=== PATIENT | male | born 1955 | race Caucasian/White ===

== ENCOUNTER 2016-11-11 21:16 | Observation (INO) ==
[2016-11-11] MEDS ORDERED: ASPIRIN PO STA (21:38)
[2016-11-11 21:55] LABS: BASO% 0.3 % (0.0-0.8); EOS# 0.15 X1000 (0.0-0.7); EOS% 0.7 % (0.0-10.0); HEMATOCRIT 44.8 % (42.0-52.0); HEMOGLOBIN 15.8 g/dL (14.0-18.0); IMM GRAN# 0.14 X1000 (0.0-0.04); IMM GRAN% 0.7 % (0.0-0.5); LYMPH# 6.37 X1000 (1.2-3.4); LYMPH% 30.2 % (20.5-51.1); MANUAL DIFF NEEDED? NO; MCH 34.6 PG (27-31); MCHC 35.3 g/dL (33-37); MONO# 2.38 X1000 (0.11-0.59); MONO% 11.3 % (1.7-9.3); MPV 11.5 FL (7.4-10.4); NEUT% 56.8 % (42.2-75.2); PLT 240 X1000 (130-400); RBC 4.57 XMIL (4.7-6.1)
[2016-11-11 22:02] LABS: INR 1.01; PROTIME 10.6 Seconds (9.2-11.7); PTT 28.3 Seconds (22.0-36.0)
[2016-11-11 22:11] LABS: CALCIUM 9.3 mg/dL (8.8-10.2); MAGNESIUM 1.6 mg/dL (1.5-2.7); POTASSIUM 4.3 mmol/L (3.5-5.1); TOTAL BILIRUBIN 0.42 mg/dL (0.20-1.00); TOTAL PROTEIN 8.1 g/dL (6.3-8.3)
[2016-11-11] MEDS ORDERED: NS 1,000 ML IV ONE (22:11)
[2016-11-11 22:54] LABS: URINE CULTURE NEEDED? NO; URINE SOURCE CLEAN CATCH
[2016-11-11] MEDS ORDERED: NICODERM PATCH TD ONE (23:04)
[2016-11-11 23:06] LABS: BILIRUBIN URINE NEGATIVE (NEGATIVE); BLOOD URINE NEGATIVE (NEGATIVE); COLOR YELLOW; GLUCOSE URINE >1000 mg/dL (NEGATIVE); LEUKOCYTES URINE NEGATIVE (NEGATIVE); NITRITE URINE NEGATIVE (NEGATIVE); PH URINE 5.5; PROTEIN URINE 100 mg/dL (NEGATIVE); SP GRAVITY URINE 1.023; TURBIDITY URINE CLEAR (CLEAR); UROBILINOGEN URINE NORMAL (NORMAL)
[2016-11-11 23:07] LABS: URINE MICRO REVIEW NEEDED? YES
[2016-11-11 23:14] LABS: UR EPITHELIAL CELLS <10 /HPF (<10); URINE BACTERIA NEGATIVE /HPF; URINE RBC <10 /HPF (<10); URINE WBC <10 /HPF (<10)
[2016-11-11 23:19] LABS: URINE CASTS GRANULAR PRESENT; URINE CRYSTALS NONE SEEN; URINE SMALL ROUND CELLS NONE SEEN
[2016-11-11] MEDS ORDERED: NEURONTIN PO ONE (23:27)
[2016-11-11] MEDS ORDERED: NORCO-10 PO ONE (23:27)
--- NOTE | 2016-11-12 00:26 | ED EKG INTERP ---
This chart was entered by Radha Kilpatrick Scribe, acting as scribe for Román Kevin MD. EKG Interpretation - EKG Time of EKG reading by physician:: 21:28 EKG Read and Signed by:: Román Kevin EKG Interpretation (*Must complete 3 of following elements*): Normal Rate: 107 Rhythm: Sinus Tachycardia Comments: Otherwise Normal ECG This chart was documented by the indicated scribe, (Radha Kilpatrick Scribe) and accurately reflects the services I performed and decisions made by me, Román Kevin MD, as attested by the provider's signature.
--- NOTE | 2016-11-12 00:53 | PROVIDER DOCUMENTATION ---
This chart was entered by Radha Kilpatrick Scribe, acting as scribe for Román Kevin MD. HPI-Syncope/Dizziness - General Chief Complaint: Weakness Stated Complaint: DIZZY/CHEST PAIN Time Seen by Provider: 11/11/16 21:58 Source: patient Allergies/Adverse Reactions: Patient Allergies Allergy/AdvReac Type Severity Reaction Status Date / Time diphenhydramine HCl * AdvReac Unknown Verified 09/08/16 16:30 [From [facility]] Home Medications: Home Medication List Medication Instructions Recorded Confirmed Last Taken Type Dulaglutide [Trulicity] 1 dose PO DAILY 12/04/15 11/11/16 11/08/16 History Gabapentin 900 mg PO TID 12/04/15 11/11/16 11/11/16 History Hydrocodone/Acetaminophen [Nezperce 1 tab PO TID 12/04/15 11/11/16 09/08/16 History 10-325 Tablet] Insulin Glargine [Lantus] 100 units SQ BID 12/04/15 11/11/16 11/11/16 History Risperidone [Risperdal] 1 mg PO TID 12/04/15 11/12/16 09/08/16 History Tramadol [Ultram] 50 mg PO Q6H PRN PRN #12 tablet 12/22/15 11/11/16 09/08/16 Rx Aspirin 81 mg PO DAILY 08/30/16 11/11/16 09/08/16 History Insulin Aspart [Novolog] 20 unit SQ BID AC 08/30/16 11/11/16 11/11/16 History Lisinopril/Hydrochlorothiazide 1 each PO QAM #90 tablet 08/30/16 11/11/16 Rx [Lisinopril-Hctz 10-12.5 mg Tab] Nitroglycerin Sl [Nitroglycerin] 0.4 mg SL PRN PRN #10 tablet 08/30/16 11/11/16 09/08/16 Rx Chlordiazepoxide [Librium] 100 mg PO Q6H PRN PRN 11/11/16 11/11/16 Unknown History - History of Present Illness-Syncope/Dizzy Nature of Presenting Problem: 61 Y/O M presents to ED with General Adult. Pt states that he's been fatigued, with near syncope today. 1/2hr of anterior neck pain. intermittent Chest Pain and chronic SOB. Pt states he has increased coughing over the past week. Review of Systems - Adult - REVIEW OF SYSTEMS - ADULT Constitutional: reports: fatique. denies: chills, fever Eyes: reports: no symptoms reported Ears, Nose, Mouth & Throat: reports: no symptoms reported Cardiovascular: reports: chest pain, syncope Respiratory: reports: cough, shortness of breath Gastrointestinal: denies: abdominal pain, diarrhea, nausea, vomiting Genitourinary: reports: no symptoms reported Musculoskeletal: reports: neck pain Integumentary: reports: no symptoms reported Neurological: reports: no symptoms reported Psychiatric: reports: no symptoms reported Endocrine: reports: no symptoms reported Hematologic/Lymphatic: reports: no symptoms reported Allergic/Immunologic: reports: no symptoms reported All Other Systems: Reviewed and Negative Past History - Adult - PAST MEDICAL HISTORY-ADULT Review of Records: reports: Old Records Reviewed, Nursing Assessment Review, Medications Reviewed, Social history reviewed & non-contributory. Major Childhood Illnesses: reports: denies history Cardiovascular: reports: HTN, hyperlipidemia Respiratory: reports: COPD Gastrointestinal: reports: GERD Obstetrical/Gynecological: reports: denies history Genitourinary: reports: denies history Musculoskeletal: reports: chronic pain, other (neuroapathy) Neurological: reports: denies history Psychiatric: reports: bipolar, depression Endocrine/Immune: reports: Diabetes Other Conditions: reports: denies history - PRIOR SURGERIES/PROCEDURES Surgical/Procedure History: reports: reviewed, not pertinent - IMMUNIZATION STATUS Childhood Immunizations: See Nurse Assessment Flu Vaccine: See Nurse Assessment - FAMILY HISTORY Family History: reviewed, not pertinent Physical Exam-General - CONSTITUTIONAL General Appearance: alert, no apparent distress - EYES Eyes: PERRL/EOMI, pink conjunctivae - HEAD, EARS, NOSE, MOUTH & THROAT HENMT: moist mucous membranes, normal ENT inspection, TMs normal, pharynx normal - NECK Neck: non-tender, full range of motion, supple, normal inspection - RESPIRATORY Respiratory: wheezing (mild expiratory) - CARDIOVASCULAR Cardiovascular: regular rate, rhythm - GASTROINTESTINAL (ABDOMEN) Abdominal Exam: non tender, soft - LYMPHATIC Lymphatic: no adenopathy - MUSCULOSKELETAL Back Exam: normal inspection Extremity: normal range of motion - SKIN Integumentary: normal color, normal turgor - NEUROLOGIC Neurologic: grossly normal - PSYCHIATRIC Psych/Mental Status: normal mood/affect, normal thought content, normal thought process, oriented x 3 Progress - PLAN OF CARE/RESULTS Progress/Plan/Lab Results: Vital Signs - 8 hr 11/11/16 21:31 Pulse Rate 114 H Respiratory Rate 18 Blood Pressure 97/67 O2 Sat by Pulse Oximetry 97 Laboratory Results - last 24 hr 11/11/16 11/11/16 11/11/16 21:36 21:40 21:40 WBC 21.11 H RBC 4.57 L Hgb 15.8 Hct 44.8 MCV 98.0 MCH 34.6 H MCHC 35.3 RDW Std Deviation 11.9 Plt Count 240 MPV 11.5 H Immature Gran % (Auto) 0.7 H Neut % (Auto) 56.8 Lymph % (Auto) 30.2 [place] % (Auto) 11.3 H Eos % (Auto) 0.7 Baso % (Auto) 0.3 Immature Gran # (Auto) 0.14 H Neut # (Auto) 12.00 H Lymph # (Auto) 6.37 H [place] # (Auto) 2.38 H Eos # (Auto) 0.15 Baso # (Auto) 0.07 PT INR PTT (Actin FS) D-Dimer Sodium 138 Potassium 4.3 Chloride 100 Carbon Dioxide 22 L Anion Gap 16 BUN 25 H Creatinine 1.7 H Estimated GFR/1.73 m2 41 BUN/Creatinine Ratio 15 Glucose 157 H POC Glucose 145 H Calculated Osmolality 283 Calcium 9.3 Magnesium 1.6 Total Bilirubin 0.42 AST 18 ALT 22 Alkaline Phosphatase 74 Creatine Kinase 70 Troponin T Rxw-U-Oaotjdxkhua Pept Total Protein 8.1 Albumin 4.0 Globulin 4.1 Albumin/Globulin Ratio 1.0 Plasma Lactate Urine Source Urine Color Urine Turbidity Urine pH Ur Specific [place] Urine Protein Ur Glucose (Stick) Ur Ketones (Stick) Urine Blood Urine Nitrite Urine Bilirubin Urobilinogen Dipstick Urine Leukocytes Urine WBC (Auto) Urine RBC (Auto) U Epithel Cells (Auto) Urine Bacteria (Auto) Urine Crystals Small Round Cells Urine Casts Urine Yeast-like Cells 11/11/16 11/11/16 11/11/16 21:40 21:40 21:40 WBC RBC Hgb Hct MCV MCH MCHC RDW Std Deviation Plt Count MPV Immature Gran % (Auto) Neut % (Auto) Lymph % (Auto) [place] % (Auto) Eos % (Auto) Baso % (Auto) Immature Gran # (Auto) Neut # (Auto) Lymph # (Auto) [place] # (Auto) Eos # (Auto) Baso # (Auto) PT 10.6 INR 1.01 PTT (Actin FS) 28.3 D-Dimer 0.27 Sodium Potassium Chloride Carbon Dioxide Anion Gap BUN Creatinine Estimated GFR/1.73 m2 BUN/Creatinine Ratio Glucose POC Glucose Calculated Osmolality Calcium Magnesium Total Bilirubin AST ALT Alkaline Phosphatase Creatine Kinase Troponin T Glm-D-Fyxcnolzinq Pept 26 Total Protein Albumin Globulin Albumin/Globulin Ratio Plasma Lactate Urine Source Urine Color Urine Turbidity Urine pH Ur Specific [place] Urine Protein Ur Glucose (Stick) Ur Ketones (Stick) Urine Blood Urine Nitrite Urine Bilirubin Urobilinogen Dipstick Urine Leukocytes Urine WBC (Auto) Urine RBC (Auto) U Epithel Cells (Auto) Urine Bacteria (Auto) Urine Crystals Small Round Cells Urine Casts Urine Yeast-like Cells 11/11/16 11/11/16 11/11/16 21:40 22:35 22:45 WBC RBC Hgb Hct MCV MCH MCHC RDW Std Deviation Plt Count MPV Immature Gran % (Auto) Neut % (Auto) Lymph % (Auto) [place] % (Auto) Eos % (Auto) Baso % (Auto) Immature Gran # (Auto) Neut # (Auto) Lymph # (Auto) [place] # (Auto) Eos # (Auto) Baso # (Auto) PT INR PTT (Actin FS) D-Dimer Sodium Potassium Chloride Carbon Dioxide Anion Gap BUN Creatinine Estimated GFR/1.73 m2 BUN/Creatinine Ratio Glucose POC Glucose Calculated Osmolality Calcium Magnesium Total Bilirubin AST ALT Alkaline Phosphatase Creatine Kinase Troponin T < 0.010 Lan-O-Woxurhmjxbu Pept Total Protein Albumin Globulin Albumin/Globulin Ratio Plasma Lactate < 0.2 L Urine Source CLEAN CATCH Urine Color YELLOW Urine Turbidity CLEAR Urine pH 5.5 Ur Specific [place] 1.023 Urine Protein 100 A Ur Glucose (Stick) >1000 A Ur Ketones (Stick) NEGATIVE Urine Blood NEGATIVE Urine Nitrite NEGATIVE Urine Bilirubin NEGATIVE Urobilinogen Dipstick NORMAL Urine Leukocytes NEGATIVE Urine WBC (Auto) <10 Urine RBC (Auto) <10 U Epithel Cells (Auto) <10 Urine Bacteria (Auto) NEGATIVE Urine Crystals NONE SEEN Small Round Cells NONE SEEN Urine Casts GRANULAR PRESENT Urine Yeast-like Cells NONE SEEN 11/12/16 11/12/16 00:00 00:00 WBC RBC Hgb Hct MCV MCH MCHC RDW Std Deviation Plt Count MPV Immature Gran % (Auto) Neut % (Auto) Lymph % (Auto) [place] % (Auto) Eos % (Auto) Baso % (Auto) Immature Gran # (Auto) Neut # (Auto) Lymph # (Auto) [place] # (Auto) Eos # (Auto) Baso # (Auto) PT INR PTT (Actin FS) D-Dimer Sodium Potassium Chloride Carbon Dioxide Anion Gap BUN Creatinine Estimated GFR/1.73 m2 BUN/Creatinine Ratio Glucose POC Glucose Calculated Osmolality Calcium Magnesium Total Bilirubin AST ALT Alkaline Phosphatase Creatine Kinase 66 Troponin T < 0.010 Dxz-R-Ympugygyasl Pept Total Protein Albumin Globulin Albumin/Globulin Ratio Plasma Lactate Urine Source Urine Color Urine Turbidity Urine pH Ur Specific [place] Urine Protein Ur Glucose (Stick) Ur Ketones (Stick) Urine Blood Urine Nitrite Urine Bilirubin Urobilinogen Dipstick Urine Leukocytes Urine WBC (Auto) Urine RBC (Auto) U Epithel Cells (Auto) Urine Bacteria (Auto) Urine Crystals Small Round Cells Urine Casts Urine Yeast-like Cells Orders Category Date Time Status Cardiac Monitoring DIRECTED Care 11/11/16 21:39 Active Saline Loc NOW Care 11/11/16 21:39 Active CHEST-2 VIEWS [RAD] Stat Exams 11/11/16 21:39 Taken BLOOD CULTURE [BLDCUL] Stat Lab 11/11/16 22:30 Results CBC WITH ELECTRONIC DIFF [HEME] Stat Lab 11/11/16 21:40 Completed CK PROFILE [SP CHEM] Stat Lab 11/11/16 21:40 Completed CK PROFILE [SP CHEM] Stat Lab 11/12/16 00:00 Completed COMPREHENSIVE METABOLIC PANEL [CHEM] Stat Lab 11/11/16 21:40 Completed D-DIMER [CHEM] Stat Lab 11/11/16 21:40 Completed LACTATE, PLASMA [CHEM] Stat Lab 11/11/16 22:35 Completed MAGNESIUM [CHEM] Stat Lab 11/11/16 21:40 Completed PRO B-NATRIURETIC PEPTIDE Stat Lab 11/11/16 21:40 Completed PROTIME WITH INR [COAG] Stat Lab 11/11/16 21:40 Completed PTT [COAG] Stat Lab 11/11/16 21:40 Completed TROPONIN T Stat Lab 11/11/16 21:40 Completed TROPONIN T Stat Lab 11/12/16 00:00 Completed UA Reflex [URINALYSIS W/POSS RFLX CULT] [URINALYSIS] Lab 11/11/16 22:45 Completed Stat URINE MANUAL MICROSCOPIC [URINALYSIS] Stat Lab 11/11/16 22:45 Completed 0.9% Sodium Chloride Inj [Ns] 1,000 ml Med 11/11/16 22:11 Discontinued IV 999 mls/hr Aspirin Med 11/11/16 21:38 Discontinued 325 mg PO STAT STA Gabapentin [Neurontin] Med 11/11/16 23:27 Discontinued 900 mg PO NOW ONE Hydrocodone/APAP 10 mg/325 mg [Nezperce-10] Med 11/11/16 23:27 Discontinued 1 each PO NOW ONE Nicotine Patch [Nicoderm Patch] Med 11/11/16 23:04 Discontinued 21 mg TD NOW ONE EKG [EKG] Stat Ther 11/11/16 21:25 Ordered EKG [EKG] Stat Ther 11/11/16 23:28 Ordered Result Diagrams: 11/11/16 21:40 11/11/16 21:40 - XRAY 1 XRAY Study: Chest Impression: Normal XRAY Interpretation: NAD Departure - Departure Date of Disposition Decision: 11/12/16 Time of Disposition Decision: 00:51 DIAGNOSIS: Near syncope Disposition: ADMITTED INPATIENT 09 Certified Medical Emergency: Emergent Condition: Good Referrals and Follow-Ups: Juan Ramon Serrato MD [Primary Care Provider] - - Critical Care Note This patient required my direct & personal management of CC.: No This chart was documented by the indicated scribe, (Radha Kilpatrick Scribe) and accurately reflects the services I performed and decisions made by me, Román Kevin MD, as attested by the provider's signature.
[2016-11-12] MEDS ORDERED: NS 1,000 ML IV ONE (03:04)
[2016-11-12] MEDS ORDERED: NITROGLYCERIN SL PRN (03:04)
[2016-11-12] MEDS ORDERED: TYLENOL PO PRN (03:04)
[2016-11-12] MEDS ORDERED: ZOFRAN IV PRN (03:04)
[2016-11-12 04:14] LABS: HEMOGLOBIN A1C 9.8 % (4.8-6.0)
--- NOTE | 2016-11-12 05:27 | EKG Report ---
Test Performed on : 11/11/2016 9:28:44 PM Test Reason : CP Blood Pressure : / mmHG Vent. Rate : 107 BPM Atrial Rate : 107 BPM P-R Int : 154 ms QRS Dur : 080 ms QT Int : 318 ms P-R-T Axes : 043 021 026 degrees QTc Int : 424 ms Sinus tachycardia. Otherwise normal ECG When compared with ECG of 08-SEP-2016 16:12, No significant change was found Unconfirmed Result
--- NOTE | 2016-11-12 05:35 | HISTORY AND PHYSICAL ---
CHIEF COMPLAINT: Chest pain, dizziness. HISTORY OF PRESENT ILLNESS: This is a 61-year-old gentleman with history of hypertension, diabetes, tobacco abuse, who presents with dizziness and chest pain. Patient has had several episodes today where he felt so dizzy he was going to pass out. He did not have any actual passing out episode but he did have issues with chest pain as well which is what prompted him to come in for evaluation. The pain is left-sided, precordial, sharp in nature, nonradiating, relieved with minimal exertion and rest. He came in the ER for evaluation. He reports having a stress test about 3-4 years ago and was negative at that time. Workup in the ER was unremarkable and he was placed in observation for chest pain and dizziness. Patient is normotensive to low blood pressure. He is usually on lisinopril/hydrochlorothiazide. PAST MEDICAL HISTORY: 1. Hypertension. 2. Diabetes. 3. Chronic pain. 4. Denies any cardiac history. PAST SURGICAL HISTORY: Denies. FAMILY HISTORY: Positive for diabetes in mother. Father had CAD and CVA in his 70s. SOCIAL HISTORY: Smokes a pack a day. He has done that for 42 years so at least a 40 pack year history. Denies drugs or ethanol. REVIEW OF SYSTEMS: Otherwise negative x10 point review of systems. ALLERGIES: Benadryl. MEDICATIONS: He is on aspirin 81 daily, Librium 100 q.6, Trulicity daily, gabapentin 900 t.i.d., [place] t.i.d., NovoLog 20 b.i.d., Lantus 100 b.i.d., lisinopril/hydrochlorothiazide which was started in August 24.5 daily, nitroglycerin p.r.n., Risperdal 1 t.i.d., tramadol. PHYSICAL EXAMINATION: VITAL SIGNS: Blood pressure 112/71, heart rate of 83, respiratory rate of 22, afebrile, 98% on room air. GENERAL: A well-developed male in no acute distress. HEAD: Normocephalic, atraumatic. EYES: Pupils equal, round, reactive to light. Extraocular movements were intact. His conjunctiva were injected. EAR/NOSE/THROAT: Moist mucous membranes. NECK: Supple. CARDIOVASCULAR: Regular rate and rhythm. PULMONARY: Bilateral breath sounds. Clear to auscultation. GASTROINTESTINAL: Soft, nontender, nondistended. Bowel sounds are positive. EXTREMITIES: No clubbing or cyanosis. LYMPHATICS: No peripheral edema. NEUROLOGICAL: Nonfocal. LABORATORY DATA: Was remarkable for profound leukocytosis, white count of 21,000. Chemistry is BUN and creatinine 25 and 1.7. Two troponins negative. EKG was unremarkable. Chest x-ray was clear. UA was negative. ASSESSMENT: This is a 61-year-old male with history of hypertension, diabetes, presenting with atypical chest pain. He has a chronic cough. 1. Chest pain. We will rule out with serial cardiac enzymes and follow clinically. Pursue Lexiscan and echo tomorrow. He does have several risk factors. ADINA score is above 3. 2. Leukocytosis. There is no obvious source of infection. We will monitor, continue IV fluids and follow closely. 3. Diabetes. Continue to monitor blood sugars. Check an A1c. Continue sliding scale and follow closely. 4. Dizziness, may be just related to some dehydration. We will stop lisinopril/hydrochlorothiazide. Continue hydration and follow. cc: MD Pablito Askew MD
--- NOTE | 2016-11-12 07:35 | Diag Imaging Result Doc PS360 ---
CHEST-2 VIEWS - 11/11/2016 INDICATION: CP TECHNIQUE: COMPARISON: None FINDINGS: The lungs are normally expanded and clear. Heart size and mediastinal contours are normal. No pneumothorax or pleural effusion. There are stable old rib deformities of posterior left-sided ribs. IMPRESSION: Negative exam. Electronically signed by Thomas Montes De Oca 11/12/2016 7:33 AM
[2016-11-12] MEDS: HUMULIN R SUBQ SCH ×4 (07:50→20:42)
[2016-11-12] MEDS ORDERED: LEXISCAN ONE (09:39)
[2016-11-12] MEDS: NORCO-10 PO PRN ×3 (12:40→22:06)
[2016-11-12] MEDS: HUMALOG SUBQ SCH ×2 (12:46→16:17)
[2016-11-12] MEDS: RISPERDAL PO SCH ×2 (12:47→17:28)
[2016-11-12] MEDS: NEURONTIN PO SCH ×3 (12:47→20:41)
[2016-11-12] MEDS: ASPIRIN PO SCH (13:00)
[2016-11-12] MEDS ORDERED: PNEUMOVAX 23 IM ONE (15:00)
--- NOTE | 2016-11-12 15:12 | Diag Imaging Result Document ---
PROCEDURE NAME: MYOCARDIAL PERF SCAN, STR/REST - 11/12/2016 PROCEDURE: Lexiscan sestamibi interpretation. DATE OF STUDY: 11/12/2016. SUMMARY: The patient was administered 14.9 millicuries of technetium-99m sestamibi, after which resting cardiac images were obtained. The patient was subsequently stressed using Lexiscan protocol. Following the administration of Lexiscan, the heart rate increased from 81 beats per minute to 105 beats per minute while the blood pressure went from 124/74 to 124/84. With Lexiscan, the patient denied chest discomfort. Following the administration of Lexiscan, the patient was administered 45.8 millicuries of technetium-99m sestamibi, after which gated stress cardiac images were obtained. Baseline ECG demonstrates sinus rhythm and was within normal limits. With Lexiscan, there were no diagnostic ST-segment changes. SPECT images were reconstructed in the short, horizontal, and vertical long axis. Review of these images demonstrated no scintigraphic evidence of inducible myocardial ischemia or infarct. Gated images demonstrated a calculated left ventricular ejection fraction of 74% with symmetrical wall motion/thickening. CONCLUSIONS: 1. Adequate response to Lexiscan. 2. Clinically negative for chest pain. 3. Electrocardiographically negative for Lexiscan-induced myocardial ischemia. 4. Lexiscan sestamibi images demonstrate no scintigraphic evidence of inducible myocardial ischemia. Normal left ventricular systolic function demonstrated. cc: MD Jose De Jesus Soto MD
[2016-11-12] MEDS: ULTRAM PO PRN ×2 (15:14→20:41)
--- NOTE | 2016-11-12 15:34 | ECHO REPORT ---
ORDER DATE: 11/12/2016 MEASUREMENTS: 1. Left ventricular end-diastolic diameter 4.4. 2. End systolic diameter 2.8. 3. Posterior wall thickness 1.5. 4. Septal thickness 1.4. 5. Left atrium 4.1. 6. Aortic root 3.2. SUMMARY OF 2-DIMENSIONAL IMAGIN. Fair quality study. 2. Aortic valve is trileaflet and opens normally on 2-dimensional images. Mitral, tricuspid, and pulmonic valves are without structural abnormality with trace mitral regurgitation and trace tricuspid regurgitation. The aortic root is normal in size. 3. Normal left ventricular chamber size with mild concentric left hypertrophy is suggested on 2-D images. Estimated left ventricular ejection fraction appears to be greater than 65%. No regional wall motion abnormalities are evident. Left atrium is borderline enlarged. Right atrium and right ventricle normal in size with normal right ventricular systolic function. 4. No pericardial effusion. 5. Appearance of inferior vena cava suggests normal central venous pressure. CONCLUSIONS: 1. No significant valvular abnormality. 2. Mild concentric left ventricular hypertrophy with estimated ejection fraction at least 65%. 3. Borderline left atrial enlargement. cc: MD Jose De Jesus Soto MD Jagan Reddy, MD
[2016-11-12] MEDS ORDERED: VANCOMYCIN IV PER PHARMACY MISC SCH (19:45)
[2016-11-12] MEDS ORDERED: VANCOMYCIN 2 GM in NS 500 ML IV ONE (21:00)
[2016-11-12] MEDS ORDERED: NICODERM PATCH TD ONE (22:30)
--- NOTE | 2016-11-13 05:36 | PROGRESS NOTE ---
DATE: 11/12/2016 SUBJECTIVE: Patient was admitted yesterday by Dr. Trejo for chest pain, dizziness. He was not seen in my office since March 2016. REVIEW OF SYSTEMS: Dizziness. Low-grade fever. HEENT: No headache. No vision problem. No earache. No sore throat. Cardiopulmonary: Atypical chest pain with dizziness. No shortness of breath, PND, orthopnea. GI: No nausea, vomiting, abdominal pain. : No history of hesitancy, frequency. No swelling of legs. Neurologic: No obvious focal symptoms or seizures. PAST MEDICAL HISTORY: Bipolar disorder, diabetes with peripheral neuropathy, hypertension, tobacco abuse. PAST SURGICAL HISTORY: None. MEDICATIONS: Reviewed. PHYSICAL EXAMINATION: Vital Signs: He is afebrile. Vital signs are stable, 5 feet 10, weight 110 pounds. HEENT: Exam within normal limits. Neck: Supple. Chest: Clear. Heart: Sounds are regular. Abdomen: Belly is soft, nontender. Good bowel sounds. No masses palpable. No peripheral edema or cyanosis. No clubbing. Neurologic: Nonfocal. INVESTIGATIONS: CBC: White cell count 21,000, hematocrit 44, platelets 240,000. SMA 7 BUN 25, creatinine 1.7, glucose 253. A1c 9.8. Urinalysis is clear. EKG: Sinus tachycardia. Nothing acute for ischemia. Chest x-ray: Negative. ASSESSMENT AND PLAN: 1. Pain with dizziness. Followup on echocardiography report, as well as, a scheduled myocardial perfusion scan. 2. Elevated white cell count. Low-grade fever. Follow up on blood cultures, urine cultures. 3. Uncontrolled diabetes. Currently taking Lantus and Humalog and Trulicity in my office. 4. Peripheral neuropathy. On gabapentin. 5. Hypertension. On metoprolol. 6. B12 deficiency. On replacement therapy. 7. History of noncompliance. 8. Tobacco abuse. Quit smoking. 9. Chronic back pain. Using [place] by Dr. Nails. 10. Chronic anxiety. On Xanax. LEVEL OF CARE: Thirty-five minutes. cc: Pablito Serrato MD
[2016-11-13] MEDS: HUMALOG SUBQ SCH (06:44)
[2016-11-13] MEDS: HUMULIN R SUBQ SCH (06:44)
[2016-11-13] MEDS: ULTRAM PO PRN (06:45)
--- NOTE | 2016-11-13 07:29 | Carotid Study ---
DATE: 11/12/2016 PROCEDURE: Bilateral duplex and color flow imaging of the carotid arteries was performed using a Portable [employer] V[employer] E9 ultrasound system and a 9L-D transducer. REFERRING PHYSICIAN: Dr. Trejo INTERPRETING PHYSICIAN: [place]: Maty INDICATIONS: Vertigo OBSERVED DATA RIGHT LEFT Brachial Blood Pressure Carotid Pulse Bruits: Carotid/Sub DIAGRAM OF ULTRASOUND IMAGING R L RIGHT INT EXT INT EXT LEFT Yang (cm/s) Yang (cm/s) Subclavian 86/0 Subclavian 90/0 CCA Proximal 103/22 CCA Proximal 98/19 CCA Distal 59/13 CCA Distal 72/11 Bulb 54/15 Bulb 53/8 ICA Proximal 37/11 ICA Proximal 45/10 ICA Mid 52/20 ICA Mid 68/27 ICA Distal 51/22 ICA Distal 66/30 ECA 83/19 ECA 96/18 Vertebral 38/8, antegrade flow Vertebral 48/19, antegrade flow ICA/CCA Ratio 0.51 ICA/CCA Ratio 0.69 % Stenosis 0-39% % Stenosis 0-39% FINDINGS: Minimal atherosclerosis of bilateral carotid arteries. Both vertebral arteries are antegrade flow. PHYSICIAN INTERPRETATION: Normal bilateral carotid ultrasound study with no hemodynamically significant flow-limiting stenosis noted by strict velocity criteria of bilateral carotid arteries. cc: MD Jose De Jesus Dozier MD Jagan Reddy, MD
[2016-11-13 07:33] LABS: HEMATOCRIT 43.4 % (42.0-52.0); HEMOGLOBIN 14.9 g/dL (14.0-18.0); MCH 34.2 PG (27-31); MCHC 34.3 g/dL (33-37); MCV 99.5 FL (81-99); MPV 11.5 FL (7.4-10.4); RBC 4.36 XMIL (4.7-6.1)
[2016-11-13 07:48] VITALS: BP 155/93
[2016-11-13 07:59] LABS: AGAP 10; BUN 22 mg/dL (8-22); CALCIUM 9.7 mg/dL (8.8-10.2); CHLORIDE 99 mmol/L (98-107); COSMO 282; HDL 30 mg/dL (35-55); LDL 99 mg/dL; POTASSIUM 4.8 mmol/L (3.5-5.1); SODIUM 136 mmol/L (136-145); TCO2 27 mmol/L (25-35); TRIGLYCERIDES 247 mg/dL (39-160); VLDL 49 mg/dL
[2016-11-13 08:10] LABS: FREE T4 1.24 ng/dL (0.93-1.70)
[2016-11-13] MEDS: ASPIRIN PO SCH (10:06)
[2016-11-13] MEDS: NEURONTIN PO SCH (10:06)
[2016-11-13] MEDS: RISPERDAL PO SCH (10:07)
[2016-11-13] MEDS: NORCO-10 PO PRN (10:09)
[2016-11-13] MEDS ORDERED: VANCOMYCIN 1.75 GM in NS 250 ML IV SCH (21:00)
--- NOTE | 2016-11-15 06:17 | DISCHARGE SUMMARY ---
ADMISSION DATE: 11/11/2016 DISCHARGE DATE: 11/13/2016 DISCHARGING DIAGNOSIS: Atypical chest pain. Cardiac perfusion scan is negative. SECONDARY DIAGNOSES: 1. Bipolar disorder. 2. Peripheral neuropathy due to diabetes. 3. Hypertension. 4. Chronic tobacco abuse. 5. Chronic pain, with pain specialist. BRIEF HISTORY AND HOSPITAL COURSE: Please see the H and P that was done by Dr. Brandon Trejo, hospitalist. In brief, he is a 61-year-old, white gentleman with the above problems who was admitted to the hospital with dizziness and chest pain. He does have risk factors. He is noncompliant. He was not seen in my office since March 2016. He was ruled out for [place] by serial cardiac enzymes and myocardial perfusion scan is negative. LABS DURING THIS ADMISSION: CBC: White cell count 13, hematocrit 43, platelets 206,000. SMA 7: Sodium 136, potassium 4.8, chloride 99, BUN 22, creatinine 0.9, glucose 208, and A1c 9.8. Serial cardiac enzymes are normal. ProBNP is 26. Cholesterol 247, LDL 178, HDL 30. Urinalysis is clear. Blood cultures 1 out of 2 positive for coagulase-negative staphylococcus which is most likely a contaminant. RADIOLOGY PROCEDURES: Chest x-ray on 11/11/2016, negative exam. CARDIOLOGY PROCEDURES: 1. Echocardiography: No significant valvular abnormality, mild concentric LVH with EF of 65%, borderline left atrial enlargement. 2. Myocardial perfusion scan clinically negative. EKG is negative, no inducible myocardial ischemia. DISCHARGE INSTRUCTIONS: B12 injections as needed, gabapentin 900 t.i.d., Trulicity 0.75 mg once a week, Risperdal 1 mg t.i.d., [place] as per the pain specialist, tramadol 50 q.6, NovoLog insulin as directed, aspirin 81 mg daily, lisinopril/hydrochlorothiazide 10/12.5 daily, insulin Lantus 50 units subcutaneous b.i.d., Lipitor 20 mg daily. Follow up in the office in 10 days. Needs maintenance care for hyperlipidemia and diabetes every 4 months A1c below 7, LDL less than 100, and quit smoking. Discussed the plan of care with the patient. cc: Pablito Serrato MD
== END 2016-11-13 10:50 | disposition home or self-care (01) ==
LOC: ED 21:16 → EDIPHOLD 21:16 → SUATTDRO 11-12 03:30 → 3N 11-12 13:07
PROVIDERS: ADMIT Internal Medicine; ATTEND Internal Medicine

== ENCOUNTER 2016-12-09 15:17 | Inpatient (IN) ==
[2016-12-09] MEDS ORDERED: NS 1,000 ML IV ONE ×3 (16:06→19:34)
--- NOTE | 2016-12-09 16:28 | Diag Imaging Result Doc PS360 ---
CHEST-2 VIEWS - 12/09/2016 INDICATION: dizziness, hypotension TECHNIQUE: COMPARISON: 11/11/2016 FINDINGS: Stable left-sided rib deformities. The lungs are normally expanded and clear. Heart size and mediastinal contours are normal. No pneumothorax or pleural effusion. IMPRESSION: Negative exam. Electronically signed by Thomas Montes De Oca 12/09/2016 4:26 PM
[2016-12-09] MEDS ORDERED: ANTIVERT PO ONE (17:07)
[2016-12-09 17:36] LABS: BASO% 1.1 % (0.0-0.8); EOS# 0.19 X1000 (0.0-0.7); EOS% 1.1 % (0.0-10.0); HEMATOCRIT 44.1 % (42.0-52.0); HEMOGLOBIN 15.4 g/dL (14.0-18.0); IMM GRAN# 0.12 X1000 (0.0-0.04); IMM GRAN% 0.7 % (0.0-0.5); LYMPH# 5.24 X1000 (1.2-3.4); LYMPH% 30.7 % (20.5-51.1); MANUAL DIFF NEEDED? NO; MCH 34.5 PG (27-31); MCHC 34.9 g/dL (33-37); MCV 98.7 FL (81-99); MONO% 9.4 % (1.7-9.3); MPV 11.5 FL (7.4-10.4); PLT 224 X1000 (130-400); RBC 4.47 XMIL (4.7-6.1)
--- NOTE | 2016-12-09 17:54 | Diag Imaging Result Doc PS360 ---
HEAD W/O CONTRAST - 12/09/2016 INDICATION: dizziness; near syncope TECHNIQUE: A CT dose reduction protocol was used. COMPARISON: None FINDINGS: The ventricles and sulci are normal in size and contour. No intracranial mass or hemorrhage. The skull is intact. The sinuses mastoids and middle ears are clear. IMPRESSION: Negative exam. Electronically signed by Thomas Montes De Oca 12/09/2016 5:51 PM
[2016-12-09 18:31] LABS: AGAP 18; ALBUMIN 3.7 g/dL (3.5-5.0); ALKALINE PHOSPHATASE 69 U/L (32-122); BUN 15 mg/dL (8-22); CALCIUM 8.7 mg/dL (8.8-10.2); CHLORIDE 94 mmol/L (98-107); CK PROFILE 67 U/L (24-204); COSMO 278; GOT 37 U/L (10-34); GPT 22 U/L (10-44); MAGNESIUM 1.7 mg/dL (1.5-2.7); POTASSIUM 5.4 mmol/L (3.5-5.1); SODIUM 133 mmol/L (136-145); TCO2 21 mmol/L (25-35); TOTAL BILIRUBIN 0.61 mg/dL (0.20-1.00); TOTAL PROTEIN 7.9 g/dL (6.3-8.3)
[2016-12-09 18:33] LABS: ALLEN TEST YES; BE -3.1 mmoll (-3.0-3.0); BLOOD TYPE ARTERIAL; DRAW SITE L RADIAL; O2(CT) 18.9 mL/dL (15.0-23.0); PCO2(98.6) 39 mmHg (35-45); PO2(98.6) 63 mmHg (60-100); SAMPLE BLOOD; SAO2 94.9 % (95.0-100.0); THB 15.3 g/dL (11.5-17.4); pH(98.6) 7.36 (7.35-7.45)
[2016-12-09 18:35] LABS: MODALITY ROOM AIR
[2016-12-09 18:46] LABS: URINE CULTURE NEEDED? NO; URINE MICRO REVIEW NEEDED? NO; URINE SOURCE CLEAN CATCH
[2016-12-09 18:50] LABS: BILIRUBIN URINE NEGATIVE (NEGATIVE); BLOOD URINE NEGATIVE (NEGATIVE); COLOR YELLOW; GLUCOSE URINE >1000 mg/dL (NEGATIVE); LEUKOCYTES URINE NEGATIVE (NEGATIVE); NITRITE URINE NEGATIVE (NEGATIVE); PH URINE 5.5; PROTEIN URINE TRACE mg/dL (NEGATIVE); SP GRAVITY URINE 1.013; TURBIDITY URINE CLEAR (CLEAR); UROBILINOGEN URINE NORMAL (NORMAL)
[2016-12-09 18:51] LABS: UR EPITHELIAL CELLS <10 /HPF (<10); URINE BACTERIA NEGATIVE /HPF; URINE RBC <10 /HPF (<10); URINE WBC <10 /HPF (<10)
[2016-12-09] MEDS ORDERED: ZOSYN 3.375 GM/NS 3.375 GM/50 ML IVPB IV ONE (19:28)
[2016-12-09] MEDS ORDERED: VANCOMYCIN 1 GM/NS 1 GM/250 ML IVPB IV ONE (19:28)
--- NOTE | 2016-12-09 19:29 | SEPSIS: TISSUE PERFUSION ASSMT ---
Sepsis: Tissue Perfusion Assmt - Physical Exam Assessment Date: 12/09/16 Time Assessment Initialized: 19:29 Vital Signs: Last Vital Signs Temp 98 F 12/09/16 15:41 Pulse 85 12/09/16 17:50 Resp 22 12/09/16 15:41 BP 95/71 12/09/16 17:50 Pulse Ox 97 12/09/16 15:41 Height 1.78 m Weight 100.698 kg Lung Sounds:: lungs clear Heart Sounds:: Regular Peripheral Pulse Evaluation:: radial (R): 2+, radial (L): 2+, dorsalis-pedis (R) : 2+, dorsalis-pedis (L): 2+ Skin Exam:: pink - Impression Impression:: Tissue Perfusion Adequate
--- NOTE | 2016-12-09 19:46 | PROVIDER DOCUMENTATION ---
This chart was entered by Truman Damian Scribe, acting as scribe for Zaki Brown PA. HPI-Syncope/Dizziness - General Chief Complaint: B/P Problems Stated Complaint: LOW B/P,DIZZINESS Time Seen by Provider: 12/09/16 15:58 Source: patient Allergies/Adverse Reactions: Patient Allergies Allergy/AdvReac Type Severity Reaction Status Date / Time diphenhydramine HCl * AdvReac Unknown Verified 11/12/16 06:57 [From [facility]] Home Medications: Home Medication List Medication Instructions Recorded Confirmed Last Taken Type Gabapentin 900 mg PO TID 12/04/15 11/11/16 11/11/16 History Hydrocodone/Acetaminophen [[place] 1 tab PO TID 12/04/15 11/11/16 09/08/16 History 10-325 Tablet] Risperidone [Risperdal] 1 mg PO TID 12/04/15 11/12/16 09/08/16 History Tramadol [Ultram] 50 mg PO Q6H PRN PRN #12 tablet 12/22/15 11/11/16 09/08/16 Rx Aspirin 81 mg PO DAILY 08/30/16 11/11/16 09/08/16 History Insulin Aspart [Novolog] 20 unit SQ BID AC 08/30/16 11/11/16 11/11/16 History Lisinopril/Hydrochlorothiazide 1 each PO QAM #90 tablet 08/30/16 11/11/16 Rx [Lisinopril-Hctz 10-12.5 mg Tab] Atorvastatin Calcium [Lipitor] 20 mg PO DAILY #30 tablet 11/13/16 Unknown Rx Dulaglutide [Trulicity] 1 dose PO DIRECTED #3 pen.injctr 11/13/16 Unknown Rx Insulin Glargine,Hum.rec.anlog 50 unit SQ BID #3 insuln.pen 11/13/16 Unknown Rx [Lantus Solostar] - History of Present Illness-Syncope/Dizzy Nature of Presenting Problem: Patient is a 61 y/o M that presents to the ER with dizziness and hypotension. Patient denies cp, shortness of breath, or n/v/d. He is a diabetic and blood sugar was is 288 mg/dl. Onset/Duration: reports: gradual, this morning Timing: reports: still present Context: reports: unknown Recently Seen Here or By Another Healthcare Provider: No - Dizziness Severity in ED: reports: moderate Dizziness Related Current/Associated Symptoms: reports: weakness, lightheaded, dizzy, lightheaded. denies: nausea/vomiting, sense of confusion Any recent trauma/injury?: reports: none Modifying Factors: improves with: nothing Patient usually:: reports: walks without assistance Review of Systems - Adult - REVIEW OF SYSTEMS - ADULT Constitutional: denies: chills, fever Eyes: reports: no symptoms reported Ears, Nose, Mouth & Throat: reports: no symptoms reported Cardiovascular: denies: chest pain, palpitations Respiratory: denies: cough, shortness of breath, wheezing Gastrointestinal: denies: abdominal pain, nausea, vomiting Genitourinary: reports: no symptoms reported Musculoskeletal: reports: muscle weakness. denies: back pain, muscle aches Integumentary: reports: no symptoms reported Neurological: reports: dizziness/vertigo. denies: headache/migraines, seizure, syncope Psychiatric: reports: no symptoms reported Endocrine: reports: no symptoms reported Hematologic/Lymphatic: reports: no symptoms reported Allergic/Immunologic: reports: no symptoms reported All Other Systems: Reviewed and Negative Past History - Adult - PAST MEDICAL HISTORY-ADULT Review of Records: reports: Old Records Reviewed, Nursing Assessment Review, Medications Reviewed Cardiovascular: reports: HTN, hyperlipidemia Respiratory: reports: COPD Gastrointestinal: reports: GERD Musculoskeletal: reports: chronic pain, other (neuroapathy) Psychiatric: reports: bipolar, depression Endocrine/Immune: reports: Diabetes - PRIOR SURGERIES/PROCEDURES Surgical/Procedure History: reports: reviewed, not pertinent - IMMUNIZATION STATUS Childhood Immunizations: See Nurse Assessment Flu Vaccine: See Nurse Assessment - FAMILY HISTORY Family History: reviewed, not pertinent - SOCIAL HISTORY Smoking: cigarettes, less than 1 pack/day Living Situation: family Physical Exam-General - PHYSICAL EXAM-ADULT Initial Vital Signs Reviewed: Yes - CONSTITUTIONAL General Appearance: alert, mild distress - EYES Eyes: PERRL/EOMI, pink conjunctivae - HEAD, EARS, NOSE, MOUTH & THROAT HENMT: normocephalic/atraumatic, moist mucous membranes, normal ENT inspection - NECK Neck: full range of motion, normal inspection - RESPIRATORY Respiratory: lungs clear, normal breath sounds, no respiratory distress, no accessory muscle use - CARDIOVASCULAR Cardiovascular: no JVD, no murmur, tachycardia - GASTROINTESTINAL (ABDOMEN) Abdominal Exam: normal bowel sounds, non tender, soft - MUSCULOSKELETAL Extremity: normal range of motion, normal inspection, no pedal edema - SKIN Integumentary: normal color, warm/dry - NEUROLOGIC Neurologic: loop tender II-XII nml as tested, no motor/sensory deficits - PSYCHIATRIC Psych/Mental Status: normal mood/affect, normal thought content, normal thought process, oriented x 3 Progress - PLAN OF CARE/RESULTS Progress/Plan/Lab Results: Vital Signs - 8 hr 12/09/16 15:41 12/09/16 16:00 12/09/16 17:00 Temperature 98 F Pulse Rate 117 H 106 H 89 Pulse Rate [Sitting] Pulse Rate [Standing] Pulse Rate [Supine] Respiratory Rate 22 20 12 Blood Pressure 79/58 88/51 101/57 Blood Pressure [Sitting] Blood Pressure [Standing] Blood Pressure [Supine] O2 Sat by Pulse Oximetry 97 91 L 95 12/09/16 17:50 12/09/16 18:01 12/09/16 19:30 Temperature 98.7 F Pulse Rate 100 H 92 H Pulse Rate [Sitting] 92 H Pulse Rate [Standing] 97 H Pulse Rate [Supine] 85 Respiratory Rate 20 22 Blood Pressure 74/55 127/76 Blood Pressure [Sitting] 116/79 Blood Pressure [Standing] 112/79 Blood Pressure [Supine] 95/71 O2 Sat by Pulse Oximetry 96 99 Laboratory Results - last 24 hr 12/09/16 12/09/16 12/09/16 16:45 16:45 16:45 WBC 17.09 H RBC 4.47 L Hgb 15.4 Hct 44.1 MCV 98.7 MCH 34.5 H MCHC 34.9 RDW Std Deviation 12.9 Plt Count 224 MPV 11.5 H Immature Gran % (Auto) 0.7 H Neut % (Auto) 57.0 Lymph % (Auto) 30.7 [place] % (Auto) 9.4 H Eos % (Auto) 1.1 Baso % (Auto) 1.1 H Immature Gran # (Auto) 0.12 H Neut # (Auto) 9.75 H Lymph # (Auto) 5.24 H [place] # (Auto) 1.60 H Eos # (Auto) 0.19 Baso # (Auto) 0.19 D-Dimer 0.27 Specimen Type Sample Site pH pCO2 pO2 HCO3 Base Excess Oxyhemoglobin ABG O2 Sat (Calculated) ABG O2 Saturation ABG Carboxyhemoglobin ABG Methemoglobin Jimmy Test A-a O2 Difference Total Hemoglobin Lactate Blood Gas Modality FiO2 % Sodium 133 L Potassium 5.4 H Chloride 94 L Carbon Dioxide 21 L Anion Gap 18 BUN 15 Creatinine 1.2 Estimated GFR/1.73 m2 > 60 BUN/Creatinine Ratio 13 Glucose 292 H Calculated Osmolality 278 Calcium 8.7 L Magnesium 1.7 Total Bilirubin 0.61 AST 37 H ALT 22 Alkaline Phosphatase 69 Creatine Kinase 67 Troponin T [id number] Pept Total Protein 7.9 Albumin 3.7 Globulin 4.2 Albumin/Globulin Ratio 0.9 Plasma Lactate Urine Source Urine Color Urine Turbidity Urine pH Ur Specific [place] Urine Protein Ur Glucose (Stick) Ur Ketones (Stick) Urine Blood Urine Nitrite Urine Bilirubin Urobilinogen Dipstick Urine Leukocytes Urine WBC (Auto) Urine RBC (Auto) U Epithel Cells (Auto) Urine Bacteria (Auto) 12/09/16 12/09/16 12/09/16 16:45 16:45 16:45 WBC RBC Hgb Hct MCV MCH MCHC RDW Std Deviation Plt Count MPV Immature Gran % (Auto) Neut % (Auto) Lymph % (Auto) [place] % (Auto) Eos % (Auto) Baso % (Auto) Immature Gran # (Auto) Neut # (Auto) Lymph # (Auto) [place] # (Auto) Eos # (Auto) Baso # (Auto) D-Dimer Specimen Type Sample Site pH pCO2 pO2 HCO3 Base Excess Oxyhemoglobin ABG O2 Sat (Calculated) ABG O2 Saturation ABG Carboxyhemoglobin ABG Methemoglobin Jimmy Test A-a O2 Difference Total Hemoglobin Lactate Blood Gas Modality FiO2 % Sodium Potassium Chloride Carbon Dioxide Anion Gap BUN Creatinine Estimated GFR/1.73 m2 BUN/Creatinine Ratio Glucose Calculated Osmolality Calcium Magnesium 1.7 Total Bilirubin AST ALT Alkaline Phosphatase Creatine Kinase Troponin T < 0.010 Jqj-J-Heanmzjpvbq Pept 17 Total Protein Albumin Globulin Albumin/Globulin Ratio Plasma Lactate Urine Source Urine Color Urine Turbidity Urine pH Ur Specific [place] Urine Protein Ur Glucose (Stick) Ur Ketones (Stick) Urine Blood Urine Nitrite Urine Bilirubin Urobilinogen Dipstick Urine Leukocytes Urine WBC (Auto) Urine RBC (Auto) U Epithel Cells (Auto) Urine Bacteria (Auto) 12/09/16 12/09/16 12/09/16 18:21 18:36 18:41 WBC RBC Hgb Hct MCV MCH MCHC RDW Std Deviation Plt Count MPV Immature Gran % (Auto) Neut % (Auto) Lymph % (Auto) [place] % (Auto) Eos % (Auto) Baso % (Auto) Immature Gran # (Auto) Neut # (Auto) Lymph # (Auto) [place] # (Auto) Eos # (Auto) Baso # (Auto) D-Dimer Specimen Type ARTERIAL Sample Site L RADIAL pH 7.36 pCO2 39 pO2 63 HCO3 22.2 Base Excess -3.1 L Oxyhemoglobin 88.1 L* ABG O2 Sat (Calculated) 18.9 ABG O2 Saturation 94.9 L ABG Carboxyhemoglobin 6.10 H* ABG Methemoglobin 1.0 Jimmy Test YES A-a O2 Difference 38.0 Total Hemoglobin 15.3 Lactate 2.50 H Blood Gas Modality ROOM AIR FiO2 % 21.0 Sodium Potassium Chloride Carbon Dioxide Anion Gap BUN Creatinine Estimated GFR/1.73 m2 BUN/Creatinine Ratio Glucose Calculated Osmolality Calcium Magnesium Total Bilirubin AST ALT Alkaline Phosphatase Creatine Kinase Troponin T [id number]-Scvsckvjsup Pept Total Protein Albumin Globulin Albumin/Globulin Ratio Plasma Lactate 2.5 H Urine Source CLEAN CATCH Urine Color YELLOW Urine Turbidity CLEAR Urine pH 5.5 Ur Specific [place] 1.013 Urine Protein TRACE A Ur Glucose (Stick) >1000 A Ur Ketones (Stick) NEGATIVE Urine Blood NEGATIVE Urine Nitrite NEGATIVE Urine Bilirubin NEGATIVE Urobilinogen Dipstick NORMAL Urine Leukocytes NEGATIVE Urine WBC (Auto) <10 Urine RBC (Auto) <10 U Epithel Cells (Auto) <10 Urine Bacteria (Auto) NEGATIVE Orders Category Date Time Status Cardiac Monitoring DIRECTED Care 12/09/16 16:06 Active ED: Orthostatic Vital Signs (E as directed Care 12/09/16 16:25 Active Saline Loc NOW Care 12/09/16 16:06 Active CHEST-2 VIEWS [RAD] Stat Exams 12/09/16 16:06 Completed HEAD W/O CONTRAST [CT] Stat Exams 12/09/16 17:11 Completed ABG [RESP] Routine Lab 12/09/16 18:21 Completed BLOOD CULTURE [BLDCUL] Stat Lab 12/09/16 18:38 Results CBC WITH ELECTRONIC DIFF [HEME] Stat Lab 12/09/16 16:45 Completed CK PROFILE [SP CHEM] Stat Lab 12/09/16 16:45 Completed COMPREHENSIVE METABOLIC PANEL [CHEM] Stat Lab 12/09/16 16:45 Completed D-DIMER [CHEM] Stat Lab 12/09/16 16:45 Completed LACTATE, PLASMA [CHEM] Stat Lab 12/09/16 18:41 Completed LACTATE, PLASMA [CHEM] Timed Lab 12/09/16 21:44 Ordered MAGNESIUM [CHEM] Stat Lab 12/09/16 16:45 Completed MAGNESIUM [CHEM] Stat Lab 12/09/16 16:45 Completed PRO B-NATRIURETIC PEPTIDE Stat Lab 12/09/16 16:45 Completed PROTIME WITH INR [COAG] Stat Lab 12/09/16 16:45 Ordered PTT [COAG] Stat Lab 12/09/16 16:45 Ordered TROPONIN T Stat Lab 12/09/16 16:45 Completed URINALYSIS W/POSS RFLX CULT-1 [URINALYSIS] Stat Lab 12/09/16 18:36 Completed 0.9% Sodium Chloride Inj [Ns] 1,000 ml Med 12/09/16 16:06 Discontinued IV 999 mls/hr 0.9% Sodium Chloride Inj [Ns] 1,000 ml Med 12/09/16 18:22 Discontinued IV 999 mls/hr 0.9% Sodium Chloride Inj [Ns] 1,000 ml Med 12/09/16 19:34 Active IV 999 mls/hr Meclizine [Antivert] Med 12/09/16 17:07 Discontinued 25 mg PO NOW ONE Piperacil/Tazobact 3.375 gm/Ns [Zosyn 3.375 gm/Ns] Med 12/09/16 19:28 Active 3.375 gm in 50 ml IV NOW Vancomycin 1 gm/Ns Med 12/09/16 19:28 Active 1 gm in 250 ml IV NOW EKG [EKG] Stat Ther 12/09/16 16:06 Ordered Result Diagrams: 12/09/16 16:45 12/09/16 16:45 - EKG 1 Time of EKG reading by physician:: 16:43 EKG Read and Signed by:: Lucio Phillip EKG Interpretation (*Must complete 3 of following elements*): Normal Rate: 95 Rhythm: NSR [place]: normal QRS: normal [place] Interval: normal ST Wave: normal - CONSULTS/PCP/HOSPITALIST Notification #1 *Consult/PCP/Hospitalist*: Dr. Noguera Time Discussed: 19:44 Consult Disposition: Admit Departure - Departure Date of Disposition Decision: 12/09/16 Time of Disposition Decision: 19:44 DIAGNOSIS: Syncope Qualifiers: Syncope type: unspecified Qualified Code(s): R55 - Syncope and collapse Sepsis Qualifiers: Sepsis type: sepsis due to unspecified organism Qualified Code(s): A41.9 - Sepsis, unspecified organism Hypotension Qualifiers: Hypotension type: other hypotension type Qualified Code(s): I95.89 - Other hypotension Disposition: ADMITTED INPATIENT 09 Certified Medical Emergency: Emergent Condition: Stable Referrals and Follow-Ups: Juan Ramon Serrato MD [Primary Care Provider] - - Critical Care Note This patient required my direct & personal management of CC.: Yes Total Time (mins): 31 (sepsis protocol) Critical Care Statement: This patient required my direct personal management to treat or rule out processes, the absence of which, could potentiallly result in sudden, clinically significant life or limb threatening deterioration. Attestation - Physician/ DESTINI Attestation Patient care was provided by Advanced Practice Provider:: Yes Advanced Practice Provider:: Zaki Brown Advanced Practice Provider documentation review:: The Mid-level provider documentation, treatment plan and medical decision making was reviewed by the physician who agrees with all treatment and medical decision making by the MLP. The physician spent face to face time with patient:: Yes Advanced Practice Provider documentation review:: The physician spent face to face time with this patient and agrees with all P documentation, treatment, and medical decision making by the MLP. See provider notes for further information. This chart was documented by the indicated scribe, (Truman Damian, Theo) and accurately reflects the services I performed and decisions made by me, Zaki Brown PA, as attested by the provider's signature.
[2016-12-09 20:14] LABS: PROTIME 10.5 Seconds (9.2-11.7); PTT 30.4 Seconds (22.0-36.0)
[2016-12-09] MEDS ORDERED: DUONEB (A & A) INH PRN (20:38)
[2016-12-09] MEDS: NICODERM PATCH TD SCH (20:45)
[2016-12-09 21:03] LABS: HEMOGLOBIN A1C 9.1 % (4.8-6.0)
--- NOTE | 2016-12-09 21:15 | HISTORY AND PHYSICAL ---
PRIMARY CARE PHYSICIAN: Zechariah Serrato MD CHIEF COMPLAINT: Feeling dizzy. HISTORY OF PRESENT ILLNESS: This is a 61-year-old male with past medical history of hypertension, diabetes, COPD secondary to tobacco abuse who presented to the hospital with dizziness. The patient came to the hospital to get an MRI of the spine today as per indication of his pain doctor, and while he was here, he felt dizzy, lightheaded, getting loss if consciousness. He reports that during the last couple of weeks he was feeling like this, but today he got really worse. He also reports more cough than he usually has. He reports that he was having some dark sputum production. He denies any pleuritic chest pain. He denies any fever or chills. He denies any diarrhea. He denies any nausea, vomiting or diaphoreses. He denies any chest pain as we mentioned before. Here in the emergency department, he was found to have a low blood pressure 80/50, tachycardic and white cell count high. So diagnosis of sepsis was made. Although we do not have any clear source of that, we are going to admit this patient for further evaluation and treatment. He was actually admitted to the hospital one month ago for chest pain and also workup has returned negative, including echocardiogram, stress test and carotid Dopplers. PAST MEDICAL HISTORY: 1. Hypertension. 2. Diabetes mellitus type 2. 3. Chronic back pain secondary to a herniated disk L5-S1. 4. Early stages COPD. PAST SURGICAL HISTORY: None. FAMILY HISTORY: Positive for diabetes in mother. Father had coronary artery disease and strokes in his 70's. SOCIAL HISTORY: Patient still smokes 1 pack per day for the last 42 years. Denies drinking alcohol or using illicit drugs. REVIEW OF SYSTEMS: Eleven systems were reviewed and all symptoms are related to H P. ALLERGIES: Apparently, there is a reaction to Benadryl where he feels a little bit sleepy, but he denies any rash or itching when he took it. PHYSICAL EXAMINATION: VITAL SIGNS: Temperature 98.7, heart rate 92, respiratory 22, blood pressure 127/76, O2 saturation 99% on room air. GENERAL: This is a 61-year-old male lying in bed in no acute distress. HEENT: Head is normocephalic, atraumatic. Anicteric sclerae and pale conjunctivae. Mucous membranes moist. NECK: Supple. No JVD noted. No carotid bruits. No lymphadenopathy. No thyromegaly. CARDIOVASCULAR: S1, S2 heard. No murmurs, gallops, or rubs. Regular rate and rhythm. RESPIRATORY: There is wheezing all over pulmonary calvin with some coarse breath sounds mostly noted in both bases. Patient is not using any accessory muscles or work of breathing. ABDOMEN: Soft, nontender to palpation. No organomegaly noted. EXTREMITIES: No clubbing, cyanosis, or edema. Peripheral pulses present in both legs. NEUROLOGICAL: Patient alert oriented x3. Moves 4 extremities. Cranial nerves 2-12 grossly normal. ASSESSMENT AND PLAN: 1. Sepsis on presentation. The patient presented to the emergency department complaining of dizziness, blood pressure was low, white cell count was elevated and patient tachycardic. So sepsis was diagnosed. The patient was given aggressive fluid resuscitation. So far, he received 2 L of normal saline here, and he is about to receive the 3rd. After that, we are going to continue with 150 mL/hour normal saline. We are going to send this patient to [facility] for better monitoring. We are going to start broad-spectrum antibiotics with vancomycin and Zosyn while we wait for results of blood cultures. Because of this changing cough pattern, we are going to check a CT of the chest without contrast to have a better visualization of lung anatomy and rule out any pneumonia that we may have missed in the x- ray. We are going to check CBC and BMP daily. 2. Diabetes mellitus type 2. We are going to check hemoglobin A1c. We are going to continue with Lantus, home doses, and sliding scale insulin as well. 3. Hypertension, of course we are going to hold all her antihypertensive medications right now. 4. Chronic back pain. We are going to continue with home medications. 5. Further recommendations to follow according to the clinical situation of the patient. Patient will be seen by his primary care physician, Dr. Pablito Serrato tomorrow morning. cc: Yann Pillai MD MTDD
--- NOTE | 2016-12-09 21:28 | Diag Imaging Result Doc PS360 ---
CT THORAX W/O CONTRAST - 12/09/2016 INDICATION: pna suspected TECHNIQUE: A CT dose reduction protocol was used. COMPARISON: Chest x-ray earlier today FINDINGS: The lungs are clear. Heart size is normal. There is rather advanced calcified triple-vessel coronary artery disease. Upper abdominal images are unremarkable. Bones are intact. IMPRESSION: Negative exam. Electronically signed by Thomas Montes De Oca 12/09/2016 9:26 PM
[2016-12-09] MEDS ORDERED: NS 1,000 ML IV SCH (21:34)
[2016-12-09] MEDS ORDERED: LANTUS SUBQ SCH (21:34)
[2016-12-09] MEDS ORDERED: ZOFRAN IV PRN ×2 (21:34→22:05)
[2016-12-09] MEDS ORDERED: LIPITOR PO SCH ×2 (21:45→22:15)
[2016-12-09] MEDS ORDERED: NEURONTIN PO SCH (21:45)
[2016-12-09] MEDS ORDERED: LOVENOX SUBQ SCH ×2 (22:00)
[2016-12-09] MEDS: NS 1,000 ML IV SCH (22:26)
[2016-12-09] MEDS ORDERED: INSULIN PEN NEEDLES ONE (22:26)
[2016-12-09] MEDS: NORCO-10 PO SCH (22:27)
[2016-12-09] MEDS: NEURONTIN PO SCH (22:27)
[2016-12-09] MEDS: HUMALOG SUBQ SCH (22:28)
[2016-12-09] MEDS: LANTUS SUBQ SCH (22:29)
[2016-12-09] MEDS: DUONEB (A & A) INH SCH (23:40)
[2016-12-10] MEDS: ZOSYN 3.375 GM/NS 3.375 GM/50 ML IVPB IV SCH ×3 (01:50→14:14)
[2016-12-10] MEDS ORDERED: ZOSYN 3.375 GM/NS 3.375 GM/50 ML IVPB IV SCH (02:00)
[2016-12-10 02:40] LABS: MANUAL DIFF NEEDED? NO
[2016-12-10 02:50] LABS: BASO% 1.1 % (0.0-0.8); EOS# 0.18 X1000 (0.0-0.7); EOS% 1.2 % (0.0-10.0); HEMATOCRIT 39.8 % (42.0-52.0); HEMOGLOBIN 13.8 g/dL (14.0-18.0); IMM GRAN# 0.11 X1000 (0.0-0.04); IMM GRAN% 0.8 % (0.0-0.5); LYMPH# 5.36 X1000 (1.2-3.4); LYMPH% 36.9 % (20.5-51.1); MCH 34.4 PG (27-31); MCHC 34.7 g/dL (33-37); MCV 99.3 FL (81-99); MONO# 1.59 X1000 (0.11-0.59); MONO% 10.9 % (1.7-9.3); MPV 10.7 FL (7.4-10.4); NEUT% 49.1 % (42.2-75.2); PLT 204 X1000 (130-400); RBC 4.01 XMIL (4.7-6.1)
[2016-12-10 03:21] LABS: AGAP 13; BUN 13 mg/dL (8-22); CALCIUM 8.3 mg/dL (8.8-10.2); CHLORIDE 99 mmol/L (98-107); COSMO 282; POTASSIUM 4.1 mmol/L (3.5-5.1); SODIUM 136 mmol/L (136-145); TCO2 24 mmol/L (25-35)
[2016-12-10] MEDS: DUONEB (A & A) INH SCH ×2 (03:30→07:45)
[2016-12-10] MEDS: NS 1,000 ML IV SCH (06:03)
[2016-12-10] MEDS: HUMALOG SUBQ SCH ×2 (06:05→12:14)
[2016-12-10] MEDS ORDERED: PRILOSEC PO SCH ×2 (07:00)
[2016-12-10] MEDS: NORCO-10 PO SCH ×2 (08:01→14:14)
[2016-12-10] MEDS: NEURONTIN PO SCH ×2 (08:02→14:14)
[2016-12-10] MEDS: LANTUS SUBQ SCH (08:02)
[2016-12-10] MEDS: NICODERM PATCH TD SCH (08:02)
[2016-12-10] MEDS ORDERED: NORCO-10 PO SCH (09:00)
[2016-12-10] MEDS ORDERED: ASPIRIN PO SCH ×2 (09:00)
[2016-12-10 12:05] VITALS: BP 136/73
--- NOTE | 2016-12-11 15:34 | DISCHARGE SUMMARY ---
ADMISSION DATE: 12/09/2016 DISCHARGE DATE: 12/10/2016 PROGRESS NOTE/DISCHARGE SUMMARY: DISCHARGING DIAGNOSIS: Dizziness due to orthostatic hypotension, etiology to be determined. SECONDARY DIAGNOSES: 1. Bipolar disorder. 2. Peripheral neuropathy due to diabetes. 3. Hypertension. 4. Chronic tobacco abuse. 5. Chronic pain. BRIEF HISTORY: Please see the H and P that was done by hospitalist. In brief, he is a 61-year- old, who was recently discharged from the hospital a month ago for atypical chest pain. At that time, cardiac workup was negative. He never followed up in my office. Apparently he is going to the chronic pain specialist, who referred MRI of the spine. Then after the MRI he felt dizzy, hypotensive, elevated white cell count and ended up in the ER. Initial workup was treated for early sepsis. He was given IV antibiotics and admitted to the [facility]. The patient did receive broad- spectrum IV antibiotics and IV fluids. He was feeling better. I did examine the patient at the bedside and he is not offering any complaints. Please see the H and P that was done by Dr. Noguera. HOSPITAL COURSE: I cut down the fluids and asked the nurse to do orthostatic blood pressure. I was told his blood pressure was low upon standing. In the meantime, I was told patient was refusing further treatment, signed out against medical advice. LABS DURING THIS ADMISSION: CBC: White cell count 14.5, hematocrit 39, platelets 204. PT/INR is normal. ABG: The pH is 7.36, pCO2 39, PO2 63. Oxyhemoglobin 88, carboxyhemoglobin 6.1. SMA 7: Sodium 136, potassium 4.1, chloride 99, BUN 13, creatinine 1.0, glucose 272. A1c 9.1. LFTs were normal. Cardiac enzymes were normal. Plasma lactate is normal. Urinalysis is clear. Blood cultures are pending. Urine cultures are pending. X-RAYS: Chest CT negative. Chest x-ray negative. Lumbar spine MRI: Lumbar spondylosis. Annual tear at L5-S1 with a disk herniation. No significant critical canal stenosis. DISPOSITION: The patient was discharged against medical advice. HOME MEDICINES: 1. Gabapentin 900 t.i.d. 2. [place] 10 t.i.d. 3. NovoLog insulin 20 units subcutaneous t.i.d. 4. Aspirin 80 mg daily. 5. Lisinopril/hydrochlorothiazide 10/12.5 every morning. 6. Lantus SoloSTAR 15 b.i.d. 7. Lipitor 20 daily. 8. Trulicity 7.5 every week. History of noncompliance. FOLLOW UP: He is going to follow up with Dr. Givens for chronic pain in my office for next 30 days. cc: Pablito Serrato MD MTDQueenie
[2016-12-12] MEDS ORDERED: PATIENT'S OWN MED SUBQ SCH (20:00)
== END 2016-12-10 14:52 | disposition left against medical advice (07) ==
LOC: ED 15:17 → 3S 21:01 → SUATTDRO 21:01
PROVIDERS: ADMIT Internal Medicine; ATTEND Internal Medicine